=== PATIENT | male | born 1985 | race Caucasian/White ===

== ENCOUNTER 2017-07-07 10:16 | Emergency (ER) | payer BC ==
[~2017-07-07] VITALS: Ht 177.8 cm; Wt 72.7 kg
[~2017-07-07 10:16] MED LIST: AUGMENTIN875 MG PO; FLONASE16 G1 BOTH NARES; MUCUS ER600 MG PO; NAPROSYN500 MG PO; PROAIR HFA8.5 GM IH; TESSALON PERLE100 MG PO
[2017-07-07 10:45] LABS: HEMOGLOBIN 14.6 G/DL (12.5-16.6); MCH 30.4 PG (29.0-34.0); MCHC 34.8 G/DL (30.0-36.0); MCV 87.3 FL (86-99); PLATELET COUNT 303 K/uL (156-360); RBC DIS.WIDTH-CV 12.4 % (11.8-14.6); RBC DIS.WIDTH-SD 39.8 % (39-53); RED BLOOD COUNT 4.81 M/uL (4.00-5.50); WHITE BLOOD COUNT 10.7 K/uL (4.1-10.2)
[2017-07-07 10:57] LABS: ALBUMIN 3.9 g/dL (3.2-4.8); CHLORIDE 107 mEq/L (99-109); POTASSIUM 3.8 mEq/L (3.7-5.4); SODIUM 141 mEq/L (136-147)
[2017-07-07 10:59] LABS: GLUCOSE 117 mg/dL (70-99); TOTAL PROTEIN 6.4 g/dL (6.4-8.3)
[2017-07-07 11:01] LABS: TOTAL BILIRUBIN 0.7 mg/dL (0.0-1.0)
[2017-07-07 11:03] LABS: ALKALINE PHOSPHATASE 72 IU/L (3-129); CREATININE 0.8 mg/dL (0.6-1.3); GFR ESTIMATE (CALCULATED) > 59 mL/min/ (58.99-99999)
[2017-07-07 11:04] LABS: UREA NITROGEN (BUN) 8 mg/dL (9-23)
[2017-07-07 11:05] LABS: AST (GOT) 13 IU/L (2-34)
[2017-07-07 11:06] LABS: ALT (GPT) 12 IU/L (3-49)
[2017-07-07 12:09] LABS: APPEARANCE SL.HAZY ((CLEAR)); BILIRUBIN NEGATIVE; BLOOD NEGATIVE; COLOR YELLOW ((YELLOW)); GLUCOSE (STRIP) NEGATIVE; KETONES 5; LEUKOCYTES NEGATIVE; NITRITE NEGATIVE; PROTEIN (STRIP) NEGATIVE; SPECIFIC GRAVITY 1.021 (1.000-1.030); UROBILINOGEN 0.2 MG/DL (0.2-1.0)
[2017-07-07 12:17] LABS: BACTERIA RARE /HPF; EPITHELIAL CELLS NONE SEEN /HPF; MUCUS TRACE /LPF; RED BLOOD CELLS 0-5 /HPF (0-5); UCUL ADDED? NO; WHITE BLOOD CELLS 0-5 /HPF (0-5)
[2017-07-07] MEDS ORDERED: ZOFRAN ODT4 MG PO (12:26)
[2017-07-07 12:42] VITALS: BP 134/81
== END 2017-07-07 12:44 | disposition home or self-care (01) ==
LOC: EME 10:16
DX: E86.0 Dehydration (principal); R11.2 Nausea with vomiting, unspecified; S80.01XA Contusion of right knee, initial encounter; R51 Headache; W18.2XXA Fall in (into) shower or empty bathtub, initial encounter; Y93.E1 Activity, personal bathing and showering; Y92.002 Bathroom of unspecified non-institutional (private) residence as the place of occurrence of the external cause; R55 Syncope and collapse; R19.7 Diarrhea, unspecified; F17.200 Nicotine dependence, unspecified, uncomplicated
CPT/HCPCS: 73564; 80053; 81003; 85027; 99281; 99284; J1885; J2405; J7030